=== PATIENT | male | born 1990 | race African-American/Black ===

== ENCOUNTER 2025-02-26 20:31 | Emergency (ER) | payer SELFPAY ==
[2025-02-26] VITALS (16 sets, daily range): BP systolic 142–171; BP diastolic 90–123; PULSE 91–120; TEMP 36.7; O2SAT 93–100; BMI 68.7
[2025-02-26] MEDS: IPRATROPIUM/ALBUTEROL SULFATE 3 ML AMPUL.NEB IH (20:49)
[2025-02-26] MEDS: PREDNISONE 20 MG TABLET 40 MG PO (20:52)
--- NOTE | 2025-02-26 21:00 | ED.ASTHMA1 ---
HPI - Asthma General Chief Complaint: Asthma Stated Complaint: SOB Time Seen by Provider: 02/26/25 20:41 Source: patient Mode of arrival: walk-in Limitations: no limitations History of Present Illness HPI Narrative: cc - shortness of breath Patient with long history of asthma presents with 2+ days of asthma flareups that he said was triggered by exposure to dust. He has been using his home albuterol inhaler as needed but today was worse and about an hour ago he used his inhaler without any improvement. He decided come to the ED for evaluation. No chest pain. No abdominal pain, vomiting or diarrhea. He did admit to some cough over the last 24 to 36 hours that is nonproductive. No ear pain or sore throat. No nasal congestion. No fever. He takes medication for elevated blood pressure -hydrochlorothiazide -but said that he did not take it today. Blood pressure is elevated at this time. Related Data Home Medications ?Medication ?Instructions ?Recorded ?Confirmed albuterol 02/26/25 atorvastatin 02/26/25 fluticasone propionate 115 2 puff inhalation BID 02/26/25 02/26/25 mcg-salmeterol 21 mcg/actuation HFA inhaler (Advair HFA) hctz 02/26/25 loratadine 10 mg tablet (Claritin) 10 mg PO DAILY 02/26/25 02/26/25 Previous Rx's ?Medication ?Instructions ?Recorded albuterol sulfate 90 mcg/actuation 2 inh inhalation Q6H PRN shortness 02/26/25 aerosol inhaler of breath or wheezing #8.5 grams ipratropium bromide 17 1 inh inhalation Q6H PRN shortness 02/26/25 mcg/actuation HFA aerosol inhaler of breath/wheezing #12.9 grams prednisone 20 mg tablet 40 mg (2 x 20 mg) PO DAILY 3 days 02/26/25 #6 tabs Allergies Allergy/AdvReac Type Severity Reaction Status Date / Time Penicillins Allergy Intermediate Hives Verified 02/26/25 20:41 PFSH PFSH Social History Little interest or pleasure in doing things: not at all Feeling down, depressed, or hopeless: not at all Exam Narrative Exam Narrative: Nurses notes and vital signs reviewed and patient is not hypoxic. Elevated blood pressure at 171/123 afebrile General: Well-appearing and in no apparent distress. Skin: Warm, dry, no pallor noted. Head: Normocephalic, atraumatic. Neck: Supple, non-tender. No cervical lymphadenopathy Eye: Pupils are equal, round and EOMI. No scleral icterus. Ears, Nose, Mouth, and Throat: TM are clear, no posterior oropharynx erythema or nasal mucosal hypertrophy, uvula is mid-line Oral mucosa is moist Cardiovascular: Regular Rate and Rhythm without murmur, gallop or rub. Respiratory: Accessory muscle use with increased work of breathing and tachypnea, but no acute respiratory distress. Lungs with diffuse inspiratory and expiratory wheezing Musculoskeletal: normal ROM, no calf or popliteal tenderness, no lower extremity edema/swelling Neurological: A&O x4. No cranial nerve dysfunction observed. No truncal ataxia. Moves all extremities. Sensation intact. Psychiatric: Cooperative and interactive. Normal mood and affect. Constitutional Vital Signs, click to edit/add: Last Vital Signs Temp 98.0 F 02/26/25 20:34 Pulse 104 H 02/26/25 22:06 Resp 22 H 02/26/25 22:06 BP 142/90 H 02/26/25 22:06 Pulse Ox 97 02/26/25 21:54 O2 Del Method Nasal Cannula 02/26/25 21:54 O2 Flow Rate 2 02/26/25 21:54 Course Vital Signs Vital signs: Vital Signs Temperature 98.0 F 02/26/25 20:34 Pulse Rate 91 H 02/26/25 20:34 Respiratory Rate 20 02/26/25 20:34 Blood Pressure 160/100 H 02/26/25 20:34 Pulse Oximetry 95 02/26/25 20:34 Oxygen Delivery Method Room Air 02/26/25 20:34 Temperature 98.0 F 02/26/25 20:34 Pulse Rate 104 H 02/26/25 22:06 Respiratory Rate 22 H 02/26/25 22:06 Blood Pressure 142/90 H 02/26/25 22:06 Pulse Oximetry 97 02/26/25 21:54 Oxygen Delivery Method Nasal Cannula 02/26/25 21:54 Oxygen Delivery Flow Rate 2 02/26/25 21:54 MDM - Asthma MDM Narrative Medical decision making narrative: Patient presents with acute asthma exacerbation and had received an albuterol dose at home about an hour ago. BP elevated on arrival. 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 Blood drawn and sent for evaluation. Respiratory was called and the patient was given a DuoNeb treatment. He was also ordered to receive 40 mg prednisone orally. Due to elevated blood pressure, he was given IV labetalol 20 mg while monitored. Portable CXR obtained. No acute cardiopulmonary issues identified on CXR. Patient improved after ED treatment - BP decreased to 150/102 after about 25 minutes following the administration of labetalol. His inspiratory wheezes markedly decreased after Duoneb treatment. But he still subjectively feel[s] bad . He was given IV Solumedrol 125mg and an additional albuterol neb treatment. Last check BP = 142/90 @2202 On recheck @ 2205 his shortness of breath had decreased and he felt the best I felt in last 2 days . He told me that his Apple Watch has intermittently been reading atrial fibrillation. Is not reading that now. He is normal sinus on the monitor. We had a short discussion about how important it is to follow-up with his primary care provider to get appropriate outpatient cardiac workup including echocardiogram and referral to cardiology. He agreed to do so. Tonight he will be discharged home with a prescription for additional steroid, no refill of his albuterol MDI and I also want him to take Atrovent MDI. Differential Diagnosis Differential diagnosis: Likely Acute exacerbation, Status asthmaticus, Acute asthmatic bronchitis, PE, Pneumonia, COPD exacerbation, ARDS, Pneumothorax and Foreign body in trachea Imaging Data Chest x-ray: Attestation: I personally reviewed and interpreted this imaging study as follows: My impression: NAD Discharge Plan Discharge Chief Complaint: Asthma Clinical Impression: Asthma with acute exacerbation, Hypertension Patient Disposition: Home, Self-Care Time of Disposition Decision: 22:31 Prescriptions / Home Meds: New prednisone 20 mg tablet 40 mg PO DAILY 3 Days Qty: 6 0RF albuterol sulfate 90 mcg/actuation HFA aerosol inhaler 2 inh inhalation Q6H PRN (Reason: shortness of breath or wheezing) Qty: 8.5 0RF ipratropium bromide 17 mcg/actuation HFA aerosol inhaler 1 inh inhalation Q6H PRN (Reason: shortness of breath/wheezing) Qty: 12.9 0RF No Action albuterol Rx Instructions: nebulizer every 4 hours as needed atorvastatin hctz fluticasone propion-salmeterol [Advair HFA] 115-21 mcg/actuation HFA aerosol inhaler 2 puff inhalation BID loratadine [Claritin] 10 mg tablet 10 mg PO DAILY Print Language: [place] Instructions: Asthma (ED), Hypertension (ED)
[2025-02-26] MEDS: LABETALOL HCL 100 MG/20 ML MDV 20 MG IVP (21:13)
[2025-02-26] MEDS: METHYLPREDNISOLONE SOD SUCC PF 125 MG/2 ML VIAL IVP (21:52)
[2025-02-26] MEDS: ALBUTEROL SULFATE 2.5 MG/3 ML VIAL NEB IH (21:54)
== END 2025-02-26 22:48 | disposition home or self-care (01) ==
PROVIDERS: Emergency Provider Emergency Medicine
DX: J45.901 Unspecified asthma with (acute) exacerbation (principal); I10 Essential (primary) hypertension; Z79.899 Other long term (current) drug therapy
CPT/HCPCS: 71045; 94640; 96374; 96375; 99284; J1290; J2919; J7512